=== PATIENT | female | born 1935 | race Caucasian/White ===

== ENCOUNTER 2018-11-16 18:10 | Emergency (ER) | payer MEDICARE ==
[~2018-11-16] VITALS: Ht 162.6 cm; Wt 61.2 kg
--- NOTE | 2018-11-16 19:20 | NUR ---
Report given to PATRICK Segundo
[2018-11-16] MEDS ORDERED: fentaNYL INJECTION 100 MCG/2 ML AMP IVP ONE ×2 (19:30→21:15)
[2018-11-16] MEDS ORDERED: NS IV 1000 ML 1,000 ML IV SCH ×2 (19:30→23:30)
[2018-11-16] MEDS ORDERED: ONDANSETRON 4 MG/2 ML (SDV) Z0FRAN IVP ONE ×2 (19:30→21:15)
--- NOTE | 2018-11-16 19:56 | ED Abdominal Pain ---
General Chief Complaint: Abdominal/GI Problems Stated Complaint: ABD PAIN, NAUSEA Nursing Triage Note: Pt to ED in wheelchair and accompanied by family. Pt c/o nausea, vomiting, R sided abdominal pain that began at 1500 today. Pt reports pain radiates to the back. Sepsis Screen: No Definite Risk Source of Information: Patient, Family (daughters) History of Present Illness Date Seen by Provider: Nov 16, 2018 Time Seen by Provider: 19:00 Initial Comments Patient is an 83-year-old female presenting with abdominal pain and nausea and vomiting. She states this came on this afternoon for her. She hasn't previously been having constipation that she was taking Metamucil for her. Then this afternoon she suddenly developed right-sided abdominal pain and had nausea and vomiting. This has persisted throughout the afternoon and evening. She came to the emergency department this evening with her family. She states that the pain does radiate into her back. She denies having similar symptoms in the past. She has had no diarrhea. She does report that the Metamucil has helped her have a bowel movement this morning. She denies having any pain with urination. She felt like she was having a fever at home but did not take her temperature this afternoon. She was having recurrent episodes of nausea and vomiting that she could not stop so that brought her to the ED. Allergies and Home Medications Allergies Uncoded Allergies: ERYTHROMYCIN (Allergy, Unknown, 11/16/18) Patient Home Medication List Home Medication List Reviewed: Yes Review of Systems Review of Systems Constitutional: fever (subjective) EENTM: No Symptoms Reported Respiratory: No Symptoms Reported Cardiovascular: No Symptoms Reported Gastrointestinal: Abdomen Distended, Abdominal Pain, Constipated (but had a bowel movement this morning), Nausea, Poor Appetite (chronic issue); Denies Rectal Bleeding; Vomiting Musculoskeletal: no symptoms reported Skin: no symptoms reported Psychiatric/Neurological: No Symptoms Reported Past Csdepuw-Hzyoig-Trnkmg Hx Past Med/Social Hx: Reviewed Nursing Past Med/Soc Hx Patient Social History Alcohol Use: Denies Use Recreational Drug Use: No 2nd Hand Smoke Exposure: No Recent Foreign Travel: No Contact w/Someone Who Travel: No Recent Infectious Disease Expo: No Recent Hopitalizations: No Physical Abuse: No Sexual Abuse: No Seasonal Allergies Seasonal Allergies: No Past Medical History Surgeries: Yes (colon) Abdominal (colon resection for colon cancer) Respiratory: No Cardiac: No Neurological: No Genitourinary: No Gastrointestinal: Yes (colon cancer) Endocrine: No HEENT: No Cancer: Yes Colon Did You Recieve Any Treatments: Yes What Type of Treatment Did You: Surgical Intervention Psychosocial: No Blood Disorders: No Adverse Reaction/Blood Tranf: No Physical Exam Vital Signs Vital Signs - First Documented 11/16/18 18:45 Temp 100.0 Pulse 75 Resp 15 B/P (MAP) 181/98 (125) Pulse Ox 94 O2 Delivery Room Air Capillary Refill : Less Than 3 Seconds Height/Weight/BMI Height: 5'4.00" Weight: 135lbs. oz. 61.632352vo; BMI Method:Stated General Appearance: moderate distress, thin HEENT: PERRL/EOMI, pharynx normal Neck: non-tender Respiratory: chest non-tender, lungs clear, normal breath sounds, no respiratory distress Cardiovascular: normal peripheral pulses, regular rate, rhythm Gastrointestinal: soft, no pulsatile mass, abnormal bowel sounds (hypoactive), distended, guarding, tenderness (right sided abdominal pain) Rectal: deferred Neurologic/Psychiatric: circulation worker II-XII nml as tested, alert, other (anxious and actively vomiting) Skin: warm/dry, pallor Progress/Results/Core Measures Results/Orders Lab Results Laboratory Tests Test 11/16/18 18:50 Range/Units White Blood Count 10.8 4.3-11.0 10^3/uL Red Blood Count 4.30 L 4.35-5.85 10^6/uL Hemoglobin 14.1 11.5-16.0 G/DL Hematocrit 42 35-52 % Mean Corpuscular Volume 97 80-99 FL Mean Corpuscular Hemoglobin 33 25-34 PG Mean Corpuscular Hemoglobin Concent 34 32-36 G/DL Red Cell Distribution Width 13.4 10.0-14.5 % Platelet Count 265 130-400 10^3/uL Mean Platelet Volume 10.5 H 7.4-10.4 FL Neutrophils (%) (Auto) 86 H 42-75 % Lymphocytes (%) (Auto) 9 L 12-44 % Monocytes (%) (Auto) 4 0-12 % Eosinophils (%) (Auto) 0 0-10 % Basophils (%) (Auto) 0 0-10 % Neutrophils # (Auto) 9.3 H 1.8-7.8 X 10^3 Lymphocytes # (Auto) 1.0 1.0-4.0 X 10^3 Monocytes # (Auto) 0.4 0.0-1.0 X 10^3 Eosinophils # (Auto) 0.0 0.0-0.3 10^3/uL Basophils # (Auto) 0.0 0.0-0.1 10^3/uL Neutrophils % (Manual) 83 % Lymphocytes % (Manual) 6 % Monocytes % (Manual) 5 % Band Neutrophils 5 % Atypical Lymphocytes 1 % Sodium Level 138 135-145 MMOL/L Potassium Level 4.1 3.6-5.0 MMOL/L Chloride Level 98 98-107 MMOL/L Carbon Dioxide Level 24 21-32 MMOL/L Anion Gap 16 H 5-14 MMOL/L Blood Urea Nitrogen 19 H 7-18 MG/DL Creatinine 1.05 0.60-1.30 MG/DL Estimat Glomerular Filtration Rate 50 BUN/Creatinine Ratio 18 Glucose Level 151 H 70-105 MG/DL Calcium Level 9.4 8.5-10.1 MG/DL Corrected Calcium 9.2 8.5-10.1 MG/DL Total Bilirubin 0.4 0.1-1.0 MG/DL Aspartate Amino Transf (AST/SGOT) 22 5-34 U/L Alanine Aminotransferase (ALT/SGPT) 9 0-55 U/L Alkaline Phosphatase 87 40-136 U/L Troponin T 15 H <=10 NG/L Total Protein 7.5 6.4-8.2 GM/DL Albumin 4.3 3.2-4.5 GM/DL Lipase 38 8-78 U/L My Orders Orders - JONELLE GOLD MD Comprehensive Metabolic Panel (11/16/18 18:56) Lipase (11/16/18 18:56) Ua Culture If Indicated (11/16/18 18:56) Cbc With Automated Diff (11/16/18 18:56) Ekg Tracing (11/16/18 18:56) Continuous Ekg Monitoring (11/16/18 18:56) Troponin T (11/16/18 18:56) Ondansetron Injection (Zofran Injectio (11/16/18 19:30) Ns Iv 1000 Ml (Sodium Chloride 0.9%) (11/16/18 19:30) Fentanyl Injection (Sublimaze Injection (11/16/18 19:30) Ct Abdomen/Pelvis W (11/16/18 19:54) Iohexol Injection (Omnipaque 350 Mg/Ml 1 (11/16/18 20:15) Received Contrast (Hold Metformin- Contr (11/16/18 20:15) Sodium Chloride Flush (Catheter Flush Sy (11/16/18 20:15) Ns (Ivpb) (Sodium Chloride 0.9% Ivpb Bag (11/16/18 20:15) Manual Differential (11/16/18 18:50) Fentanyl Injection (Sublimaze Injection (11/16/18 21:15) Ng Tube Insert & Assessment (11/16/18 21:10) Ng Tube To Low Wall Suction (11/16/18 21:10) Ondansetron Injection (Zofran Injectio (11/16/18 21:15) Chest 1 View Ap/Pa Only (11/16/18 22:12) Hydralazine Injection (Apresoline Inject (11/16/18 22:45) Metoclopramide Injection (Reglan Injecti (11/16/18 23:30) Ns Iv 1000 Ml (Sodium Chloride 0.9%) (11/16/18 23:30) Metoclopramide Injection (Reglan Injecti (11/16/18 23:31) Medications Given in ED Current Medications Medications Dose Ordered Sig/Kayode Route Start Time Stop Time Status Last Admin Dose Admin Fentanyl Citrate 25 mcg ONCE ONCE IVP 11/16/18 19:30 11/16/18 19:31 DC 11/16/18 19:28 25 MCG Fentanyl Citrate 25 mcg ONCE ONCE IVP 11/16/18 21:15 11/16/18 21:16 DC 11/16/18 21:25 25 MCG Hydralazine HCl 10 mg ONCE ONCE IV 11/16/18 22:45 11/16/18 22:47 DC 11/16/18 22:49 10 MG Iohexol 100 ml ONCE ONCE IV 11/16/18 20:15 11/16/18 20:19 DC 11/16/18 20:48 100 ML Metoclopramide HCl 5 mg ONCE ONCE IVP 11/16/18 23:30 11/17/18 00:31 DC 11/16/18 23:43 5 MG Metoclopramide HCl 10 mg STK-MED ONCE .ROUTE 11/16/18 23:31 11/17/18 00:31 DC 11/16/18 23:31 10 MG Ondansetron HCl 4 mg ONCE ONCE IVP 11/16/18 19:30 11/16/18 19:31 DC 11/16/18 19:27 4 MG Ondansetron HCl 4 mg ONCE ONCE IVP 11/16/18 21:15 11/16/18 21:16 DC 11/16/18 21:26 4 MG Sodium Chloride 10 ml NEEDED PRN IV 11/16/18 20:15 11/17/18 03:20 DC 11/16/18 20:49 10 ML Sodium Chloride 50 ml ONCE ONCE IV 11/16/18 20:15 11/16/18 20:19 DC 11/16/18 20:48 50 ML Vital Signs/I&O 11/16/18 11/17/18 18:45 02:39 Temp 100.0 99.7 Pulse 75 88 Resp 15 18 B/P (MAP) 181/98 (125) 147/74 (98) Pulse Ox 94 97 O2 Delivery Room Air Room Air 11/17/18 00:00 Intake Total 1000 ml Balance 1000 ml Blood Pressure Mean: 125 Progress Progress Note #1: Time: 19:00 Progress Note Will check labs and try giving IV zofran for nausea, Fentanyl for pain and IVF for hydration. Will plan on checking CT scan of abdomen/pelvis if her Cr is good enough to get with contrast, otherwise will obtain with non-contrast study. Her blood pressure is elevated but she is also distressed with active emesis so will wait to see if she is truly elevated once her nausea and vomiting has calmed down Progress Note #2: Progress Note On recheck her labs appear stable without elevation of her white blood cell count. Her chemistry is normal lipase and creatinine. We will obtain a CT scan of her abdomen and pelvis to evaluate for possible bowel obstruction or appendicitis or other pathology that could be causing her to have the nausea and vomiting and abdominal pain. Progress Note #3: Progress Note CT scan shows that she has small bowel obstruction the distal small bowel. No evidence of perforation. Updated the patient and family. With [facility] [place] on diversion due to the hospital being full the patient's family requested to go to [facility]. [address] Dr. Olaf Red accepted the patient in transfer to [facility] Her blood pressure remained elevated after the NG was placed so a single dose of Hydralazine 10 mg IV was given to the patient. This did help lower her blood pressure. She was also given 5 mg IV reglan to help with nausea and motility of her intestines. Progress Note #4: Time: 03:25 Progress Note EMS available now to transport pt to [facility]. Pt has remained stable during her stay in the ED. Her NG did require occasional suctioning and flushing to help it suction as it would occasionally stop and the pt would complain of nausea again. her bp remained improved after the single dose of hydralazine. she was getting some maintenance fluids of NS at 75 mls/hr. Initial ECG Impression Date: Nov 16, 2018 Initial ECG Impression Time: 21:03 Initial ECG Rate: 77 Initial ECG Rhythm: Normal Sinus Initial ECG Intervals [place] interval of 172 ms. QT interval of 398 ms with QTc interval of 450 ms. Left axis deviation. No acute ST elevation. No prior tracing immediately available for comparison Initial ECG Comparisson: No Previous ECG Available Diagnostic Imaging Diagonstic Imaging: Xray Plain Films/CT/US/NM/MRI: chest Comments Tip of the NG appears to be in the stomach, on my review of the 1 view film of the chest. Reviewed: Reviewed by Me Diagonstic Imaging: CT Plain Films/CT/US/NM/MRI: abdomen, pelvis Comments NAME: HUNTER HENDERSON [facility] REC#: [id number] PT STATUS: REG ER : 1935 PHYSICIAN: JONELLE GOLD MD ADMIT DATE: 11/16/18/ER FS Signed Date of Exam:11/16/18 CT ABDOMEN/PELVIS W PROCEDURE: CT abdomen and pelvis with contrast. TECHNIQUE: Multiple contiguous axial images were obtained through the abdomen and pelvis after administration of intravenous contrast. Auto Exposure Controls were utilized during the CT exam to meet ALARA standards for radiation dose reduction. INDICATION: Right-sided abdominal pain. History of colon CA. FINDINGS: The lung bases are clear. The liver appears normal. Gallbladder shows multiple faceted gallstones. Gallbladder wall is mildly thickened. Gallbladder is mildly distended. The bile ducts are not dilated. The pancreas appears normal. The spleen is normal. The adrenal glands and kidneys are normal. There is normal enhancement of the abdominal organs and vessels. There is rather marked dilatation of the small bowel loops throughout the mid and lower abdomen. The distal small bowel is not distended. Colon shows normal stool and gas pattern. No masses are seen. No adenopathy of pathologic size. There is a small umbilical hernia without evidence of incarcerated bowel. No free air or free fluid. No evidence of pneumatosis. IMPRESSION: 1. Distended loops of small bowel with air-fluid levels consistent with distal small bowel obstruction with a mid ileum, likely within the pelvis. 2. Distended gallbladder with multiple gallstones and mild thickening of the gallbladder wall. Dictated by: Dictated on workstation # [id number] Dict: 11/16/182103 Trans: 11/16/182121 [id number] Interpreted by: JESSICA SHIRLEY MD Electronically signed by: JESSICA SHIRLEY MD 11/16/182121 Reviewed: Reviewed by Me (and reviewed reading from radiology.) Departure Impression Primary Impression: Small bowel obstruction Additional Impression: Hypertension Qualified Codes: I10 - Essential (primary) hypertension Disposition: XFER SHT-TRM HOSP Condition: Stable Transfer Time Spoke to Accepting Phy: 21:49 Transfer Progress Notes D/W Dr. Olaf Red At [facility] at 2149 and he accepted the patient in transfer. Will look for a bed and make arrangements. I advised him that once the NG was placed if her BP did not improve I would then start to treat it but was holding off initially because of her small size I did not want to treat it if she was falsely elevated due to pain from the bowel obstruction and moving her arm. Transfer Time: 03:25 Transfer Facility: [facility] Method of Transfer: EMS Departure-Patient Inst. Referrals: ANDREY PANIAGUA MD (PCP) Primary Care Physician JONELLE GOLD MD Nov 16, 2018 19:56
[2018-11-16] MEDS ORDERED: CATHETER FLUSH 10 ML SYR IV PRN (20:15)
[2018-11-16] MEDS ORDERED: HOLD METFORMIN - RECEIVED CONTRAST 20 ML VIAL IV SCH (20:15)
[2018-11-16] MEDS ORDERED: NS 50 ML (IVPB) BAG IV ONE (20:15)
[2018-11-16] MEDS ORDERED: IOHEXOL 350 MG/ML 100 ML (OMNIPAQUE 350) VIAL IV ONE (20:15)
[2018-11-16 20:37] LABS: BILIRUBIN,TOTAL 0.4 MG/DL (0.1-1.0); CALCIUM 9.4 MG/DL (8.5-10.1); CREATININE SERUM 1.05 MG/DL (0.60-1.30); POTASSIUM 4.1 MMOL/L (3.6-5.0)
[2018-11-16 20:38] LABS: ALBUMIN 4.3 GM/DL (3.2-4.5); TOTAL PROTEIN 7.5 GM/DL (6.4-8.2)
[2018-11-16 20:39] LABS: BASOPHILS % (AUTO) 0 % (0-10); EOSINOPHILS % (AUTO) 0 % (0-10); HEMATOCRIT 42 % (35-52); HEMOGLOBIN 14.1 G/DL (11.5-16.0); LYMPHOCYTES % (AUTO) 9 % (12-44); MEAN CORPUSCULAR HEMOGLOBIN 33 PG (25-34); MEAN CORPUSCULAR HGB CONC 34 G/DL (32-36); MEAN CORPUSCULAR VOLUME 97 FL (80-99); MEAN PLATELET VOLUME 10.5 FL (7.4-10.4); MONOCYTES % (AUTO) 4 % (0-12); NEUTROPHILS % (AUTO) 86 % (42-75); PLATELET COUNT 265 10^3/uL (130-400); RED CELL DISTRIBUTION WIDTH 13.4 % (10.0-14.5); WHITE BLOOD COUNT 10.8 10^3/uL (4.3-11.0)
[2018-11-16 20:40] LABS: MONOCYTES # (AUTO) 0.4 X 10^3 (0.0-1.0); NEUTROPHILS # (AUTO) 9.3 X 10^3 (1.8-7.8)
[2018-11-16 20:41] LABS: ATYPICAL LYMPHOCYTES 1 %; BAND NEUTROPHILS 5 %; LYMPHOCYTES % (MANUAL) 6 %; MONOCYTES % (MANUAL) 5 %; NEUTROPHILS % (MANUAL) 83 %
--- NOTE | 2018-11-16 21:09 | Diagnostic Imaging Report ---
PROCEDURE: CT abdomen and pelvis with contrast. TECHNIQUE: Multiple contiguous axial images were obtained through the abdomen and pelvis after administration of intravenous contrast. Auto Exposure Controls were utilized during the CT exam to meet ALARA standards for radiation dose reduction. INDICATION: Right-sided abdominal pain. History of colon CA. FINDINGS: The lung bases are clear. The liver appears normal. Gallbladder shows multiple faceted gallstones. Gallbladder wall is mildly thickened. Gallbladder is mildly distended. The bile ducts are not dilated. The pancreas appears normal. The spleen is normal. The adrenal glands and kidneys are normal. There is normal enhancement of the abdominal organs and vessels. There is rather marked dilatation of the small bowel loops throughout the mid and lower abdomen. The distal small bowel is not distended. Colon shows normal stool and gas pattern. No masses are seen. No adenopathy of pathologic size. There is a small umbilical hernia without evidence of incarcerated bowel. No free air or free fluid. No evidence of pneumatosis. IMPRESSION: 1. Distended loops of small bowel with air-fluid levels consistent with distal small bowel obstruction with a mid ileum, likely within the pelvis. 2. Distended gallbladder with multiple gallstones and mild thickening of the gallbladder wall. Dictated by: Dictated on workstation # [id number]
[2018-11-16] MEDS ORDERED: hydrALAZINE (APESOLINE) 20 MG/ML VIAL IV ONE (22:45)
--- NOTE | 2018-11-16 22:46 | NUR ---
DOCTOR AWARE OF THE PT'S BP BEING 218/106 NEW ORDERS PLACED.
[2018-11-16] MEDS ORDERED: METOCLOPRAMIDE INJ 10 MG/2 ML (REGLAN) IVP ONE (23:30)
[2018-11-16] MEDS ORDERED: METOCLOPRAMIDE INJ 10 MG/2 ML (REGLAN) ONE (23:31)
--- NOTE | 2018-11-16 23:46 | NUR ---
FLUSHED NG TUBE AT THIS TIME.
[2018-11-17 02:39] VITALS: BP 147/74
--- NOTE | 2018-11-17 06:59 | Diagnostic Imaging Report ---
EXAMINATION: Single frontal view of the chest. INDICATION: Abdominal pain. Nausea and vomiting. NG tube placement. COMPARISON: None available. FINDINGS: An enteric tube is in place, with the distal tip overlying the upper to mid esophagus near the aortic arch. The lungs are clear and the pulmonary vasculature is normal. No pneumothorax or large pleural effusion. The cardiomediastinal silhouette is normal. There is mild tortuosity of thoracic aorta. No acute osseous abnormality identified. Contrast excretion from a prior CT abdomen and pelvis is demonstrated in both renal pelves. IMPRESSION: No acute chest disease. Distal tip of enteric tube overlies the upper to mid esophagus, at the level of the aortic arch. Dictated by: Dictated on workstation # [id number]
== END 2018-11-17 03:19 | disposition short-term general hospital (02) ==
LOC: ER FS 18:11
DX: K56.609 Unspecified intestinal obstruction, unspecified as to partial versus complete obstruction (principal); I10 Essential (primary) hypertension; Z88.1 Allergy status to other antibiotic agents; Z85.038 Personal history of other malignant neoplasm of large intestine
CPT/HCPCS: 36415; 71045; 74177; 80053; 83690; 84484; 85007; 85027

== ENCOUNTER 2020-09-29 15:11 | Emergency (ER) | payer MEDICARE ==
[~2020-09-29] VITALS: Ht 165.1 cm; Wt 59.0 kg
[2020-09-29] MEDS ORDERED: ONDANSETRON 4 MG/2 ML (SDV) Z0FRAN IVP STA (15:25)
[2020-09-29] MEDS ORDERED: fentaNYL INJECTION 100 MCG/2 ML AMP IVP STA (15:25)
--- NOTE | 2020-09-29 15:57 | NUR ---
THE PTS DAUGHTER WAS BROUGHT BACK TO THE ER TO HELP EASE THE PTS ANXIETY AND TO HELP CHOOSE A TRANSFER LOCATION. SHE STATED SHE HAD BEEN ADAMANT ON SCENE THAT THE PT GO TO [facility] BUT THE [facility] CREW STATED THEY COULD NOT TAKE HER THERE. LUCIANA FROM [facility] CALLED THIS RN REPORT AND STATED THERE WAS NO SHORTENING OR ROTATION TO THE LEFT LEG. THE PT WAS GIVEN 100 MCG OF FENTANYL AND 4 MG OF [facility]. THE CREW ARRIVED WITH THE PT WITH VERY OBVIOUS SHORTENING AND ROTATION NOTED TO THE LEFT LEG AND THEY STATED THE PT DEMANDED TO COME TO THE [place] ER.
--- NOTE | 2020-09-29 16:04 | Diagnostic Imaging Report ---
Indication: Hip fracture Portable chest 3:36 PM Heart size and pulmonary vascularity are normal. Lungs are clear. There are no effusions or pneumothoraces. IMPRESSION: Negative chest Dictated by: Dictated on workstation # [id number]
--- NOTE | 2020-09-29 16:09 | ED Fall/Injury ---
General Chief Complaint: Lower Extremity Stated Complaint: FALL Nursing Triage Note: Patient presents to the ED via EMS with c/o left hip pain. She states she was reaching up trying to grab something off the top of her refrigerator when she lost her balance landing on her left hip. Upon arrival there is obvious shortening and external rotation of the left hip. Source: patient, EMS History of Present Illness Date Seen by Provider: Sep 29, 2020 Time Seen by Provider: 15:11 Initial Comments 85 yo Female presents with left hip pain after a fall at home. She was trying to get something off of the top of the refrigerator when she lost her balance and fell on her left side. She had severe pain in her left hip and was unable to get back up. She denies losing consciousness but states that she did bump her head. She has shortening and external rotation of her left hip. She denies any numbness or decreased sensation in her arms or legs. She has no change in her vision. She can move all of her extremities. She denies any chest pain, cough, shortness of breath, abdominal pain, pain with urination, fever, chills. She states that she does have trouble controlling her urine but that that is a chronic issue. She has intermittent issues with her stool going from constipation to loose stools but this has been also chronic. She states she had a normal bowel movement yesterday. She denies taking any medications and does not take any blood thinners or aspirin. She used to follow-up with Dr. Paniagua but has not seen him for a few years. Occurred: just prior to arrival Severity: severe Injuries/Pain Location: lower extremity (left hip) Context: lost balance Loss of Consciousness: no loss of consciousness Modifying Factors: Improves With Immobilization; Worse With Jarring, Worse With Movement; Improves With Pain Medication Associated Symptoms (Fall): No Abdominal Pain, No Chest Pain, No Confusion, No Dizziness, No Headache, No Lightheadedness; Muscle Spasms; No Nausea/Vomiting, No Neck Pain, No Ringing in Ears, No Seizures, No Shortness of Air, No Slurred Speech; Trouble Walking (could not get up due to pain in left hip); No Vision Changes Allergies and Home Medications Allergies Uncoded Allergies: ERYTHROMYCIN (Allergy, Unknown, 11/16/18) Patient Home Medication List Home Medication List Reviewed: Yes Review of Systems Review of Systems Constitutional: No chills, No dizziness, No fever, No malaise Eyes: Denies Blurred Vision, Denies Photophobia, Denies Vision Changes Ears, Nose, Mouth, Throat: no symptoms reported Respiratory: No cough, No short of breath Cardiovascular: No chest pain, No edema Gastrointestinal: No abdominal pain; nausea (Since getting pain medication); No vomiting Genitourinary: No dysuria; frequency (Chronic issue) Musculoskeletal: see HPI; No neck pain Skin: no symptoms reported Psychiatric/Neurological: Denies Headache, Denies Numbness, Denies Paresthesia; Tremors (Chronic) Past Dwguudi-Huibkp-Thmxgb Hx Past Med/Social Hx: Reviewed Nursing Past Med/Soc Hx Patient Social History Alcohol Use: Denies Use Smoking Status: Never a Smoker 2nd Hand Smoke Exposure: No Recent Infectious Disease Expo: No Recent Hopitalizations: No Seasonal Allergies Seasonal Allergies: No Past Medical History Surgeries: Yes (colon resection) Abdominal, Bowel Surgery Respiratory: No Cardiac: No Neurological: No Genitourinary: No Gastrointestinal: Yes (colon cancer) Musculoskeletal: No Endocrine: No HEENT: No Cancer: Yes Colon Did You Recieve Any Treatments: Yes What Type of Treatment Did You: Surgical Intervention Psychosocial: No Integumentary: No Blood Disorders: No Adverse Reaction/Blood Tranf: No Physical Exam Vital Signs Vital Signs - First Documented 09/29/20 15:20 Temp 37.1 Pulse 64 Resp 18 B/P (MAP) 150/82 (104) Pulse Ox 98 O2 Delivery Room Air Capillary Refill : Less Than 3 Seconds Height, Weight, BMI Height: 5'4.00" Weight: 135lbs. oz. 61.204912ls; 21.00 BMI Method:Stated General Appearance: WD/WN, moderate distress (Due to pain in her left hip and upper thigh) HEENT: PERRL/EOMI, pharynx normal Neck: full range of motion, supple Cardiovascular: normal peripheral pulses, regular rate, rhythm Respiratory: chest non-tender, lungs clear, normal breath sounds, no respiratory distress, no accessory muscle use Gastrointestinal: normal bowel sounds, soft, no pulsatile mass Extremities: no calf tenderness, normal capillary refill, pelvis stable, other (Pain to the left hip increased with any movement and palpation. 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 nml as tested, no motor/sensory deficits, alert, oriented x 3 Skin: normal color, warm/dry Robert Coma Score Best Eye Response: (4) Open Spontaneously Best Verbal Response: (5) Oriented Best Motor Response: (6) Obeys Commands Robert Total: 15 Progress/Results/Core Measures Results/Orders Lab Results Laboratory Tests Test 09/29/20 16:20 09/29/20 16:26 09/29/20 17:27 Range/Units Urine Color YELLOW Urine Clarity CLEAR Urine pH 6.0 5-9 Urine Specific Robinson 1.020 1.016-1.022 Urine Protein NEGATIVE NEGATIVE Urine Glucose (UA) NEGATIVE NEGATIVE Urine Ketones 1+ H NEGATIVE Urine Nitrite NEGATIVE NEGATIVE Urine Bilirubin NEGATIVE NEGATIVE Urine Urobilinogen NORMAL < = 1.0 MG/DL Urine Leukocyte Esterase TRACE H NEGATIVE Urine RBC (Auto) NEGATIVE NEGATIVE Urine RBC NONE /HPF Urine WBC 2-5 /HPF Urine Squamous Epithelial Cells RARE /HPF Urine Crystals NONE /LPF Urine Bacteria FEW H /HPF Urine Casts NONE /LPF Urine Mucus MODERATE H /LPF Urine Culture Indicated YES White Blood Count 14.3 H 4.3-11.0 10^3/uL Red Blood Count 3.41 L 4.35-5.85 10^6/uL Hemoglobin 11.2 L 11.5-16.0 G/DL Hematocrit 34 L 35-52 % Mean Corpuscular Volume 101 H 80-99 FL Mean Corpuscular Hemoglobin 33 25-34 PG Mean Corpuscular Hemoglobin Concent 33 32-36 G/DL Red Cell Distribution Width 13.4 10.0-14.5 % Platelet Count 206 130-400 10^3/uL Mean Platelet Volume 10.2 7.4-10.4 FL Immature Granulocyte % (Auto) 0 % Neutrophils (%) (Auto) 90 H 42-75 % Lymphocytes (%) (Auto) 5 L 12-44 % Monocytes (%) (Auto) 4 0-12 % Eosinophils (%) (Auto) 0 0-10 % Basophils (%) (Auto) 0 0-10 % Neutrophils # (Auto) 12.9 H 1.8-7.8 X 10^3 Lymphocytes # (Auto) 0.7 L 1.0-4.0 X 10^3 Monocytes # (Auto) 0.6 0.0-1.0 X 10^3 Eosinophils # (Auto) 0.0 0.0-0.3 10^3/uL Basophils # (Auto) 0.0 0.0-0.1 10^3/uL Immature Granulocyte # (Auto) 0.1 0.0-0.1 10^3/uL Neutrophils % (Manual) 86 % Lymphocytes % (Manual) 7 % Monocytes % (Manual) 3 % Band Neutrophils 4 % Macrocytosis SLIGHT Sodium Level 140 135-145 MMOL/L Potassium Level 4.6 3.6-5.0 MMOL/L Chloride Level 103 98-107 MMOL/L Carbon Dioxide Level 24 21-32 MMOL/L Anion Gap 13 5-14 MMOL/L Blood Urea Nitrogen 20 H 7-18 MG/DL Creatinine 1.14 0.60-1.30 MG/DL Estimat Glomerular Filtration Rate 45 BUN/Creatinine Ratio 18 Glucose Level 166 H 70-105 MG/DL Calcium Level 9.0 8.5-10.1 MG/DL Corrected Calcium 9.1 8.5-10.1 MG/DL Total Bilirubin 0.4 0.1-1.0 MG/DL Aspartate Amino Transf (AST/SGOT) 19 5-34 U/L Alanine Aminotransferase (ALT/SGPT) 9 0-55 U/L Alkaline Phosphatase 82 40-136 U/L Troponin I < 0.30 <0.30 NG/ML Total Protein 6.6 6.4-8.2 GM/DL Albumin 3.9 3.2-4.5 GM/DL Prothrombin Time 12.9 12.2-14.7 SEC INR Comment 1.0 0.8-1.4 Activated Partial Thromboplast Time < 20 L 24-35 SEC My Orders Orders - JONELLE GOLD MD Pelvis With Left Hip 2-3 View (09/29/20 15:24) Cbc With Automated Diff (09/29/20 15:25) Chest 1 View Ap/Pa Only (09/29/20 15:25) Ekg Tracing (09/29/20 15:25) Comprehensive Metabolic Panel (09/29/20 15:25) Protime With Inr (09/29/20 15:25) Partial Thromboplastin Time (09/29/20 15:25) O2 (09/29/20 15:25) Monitor-Rhythm Ecg Trace Only (09/29/20 15:25) Ed Iv/Invasive Line Start (09/29/20 15:25) Troponin I Fs (09/29/20 15:25) Fentanyl Injection (Sublimaze Injection (09/29/20 15:25) Ondansetron Injection (Zofran Injectio (09/29/20 15:25) Ct Head/Cervical Spine Wo (09/29/20 15:36) Ekg Tracing (09/29/20 15:37) Hernadez Cath (09/29/20 15:56) Ua Culture If Indicated (09/29/20 15:56) Urine Culture (09/29/20 16:20) Manual Differential (09/29/20 16:26) Vital Signs/I&O 09/29/20 09/29/20 15:20 17:48 Temp 37.1 37.1 Pulse 64 72 Resp 18 20 B/P (MAP) 150/82 (104) 188/90 (104) Pulse Ox 98 100 O2 Delivery Room Air Blood Pressure Mean: 104 Progress Progress Note #1: Progress Note Obtain basic labs as well as x-rays of the pelvis with left hip, chest x-ray and CT of the head and cervical spine since she reported bumping her head when she fell. She denied any pain or loss of consciousness. Ordered additional fentanyl and Zofran for pain and nausea. Progress Note #2: Progress Note Pelvis and hip x-rays do demonstrate intertrochanteric comminuted fracture of the left hip with displacement and impaction. Pelvis appears stable without fracture. When discussed with patient and daughter about choice of facility for transfer since patient will definitely need orthopedic intervention and surgery they have requested [facility] as they have the family members that works with the [facility] system. They were advised that they would have to likely pay an additional fee for ambulance transport past facilities that were closer and had orthopedics and could provide the service that she needed. They did confer and discuss this but still decided they wanted to seek care at [facility] since she had been admitted there most recently and had more family members in the area for greater back up and assistance in care. 1604 call placed to [facility] Transfer center and discussed with Shwetha. 1618 Dr. Reese with transfer center called back and discussed pt and accepted her in transfer but will check with Orthopedics and hospitalist about what facility she can go to as well as wanting to get labs and tests since not everything is back yet. Progress Note #3: Progress Note 1655 Dr. Reese called back for additional details. He thought Hospitalist would be able to take pt at [facility] provided they did not want her on telemetry monitoring. Waiting to hear back, but had wanted to verify that the pt was not taking any blood thinners and not on any medicines or any extensive history of medical problems. 1730 Patient will be going to [facility]. Labs do show elevated WBC count likely from stress due to fracture. Chemistry with mild elevation of Cr and mild drop in GFR to go with some mild renal insufficiency. Negative cardiac enzymes. CXR clear and CT head and cervical spine show age related changes and arthritic changes but no fracture, bleeding or stroke. UA from catheter with mild elevation of Specific Robinson at 1.020 and trace LE, 2-5 WBC with few bacteria and mucus. Initial ECG Impression Date: Sep 29, 2020 Initial ECG Impression Time: 16:05 Initial ECG Rate: 63 Initial ECG Rhythm: Normal Sinus Initial ECG Comparisson: Unchanged Comment Normal sinus rhythm with a heart rate of 63 bpm. WV interval [address] elevation. QT interval 431 ms with a QTc interval 442 ms. Appears similar to prior tracings in the system. Diagnostic Imaging Diagonstic Imaging: Xray Plain Films/CT/US/NM/MRI: pelvis, hip Comments [facility]. [place], [place] NAME: HUNTER HENDERSON [facility] REC#: [id number] PT STATUS: REG ER : 1935 PHYSICIAN: JONELLE GOLD MD ADMIT DATE: 09/29/20/ER FS Signed Date of Exam:09/29/20 PELVIS WITH LEFT HIP 2-3 VIEW Indication: Left hip fracture AP view pelvis and 3 views of left hip are obtained There is a comminuted intertrochanteric fracture left hip with reduction of the femoral angle and avulsion of the greater and lesser trochanters. The pelvic ring and right hip appear to be grossly intact. IMPRESSION: Comminuted intertrochanteric fracture left hip Dictated by: Dictated on workstation # [id number] Dict: 09/29/20 1605 Trans: 09/29/20 1606 [id number] Interpreted by: YRIS IQBAL MD Electronically signed by: YRIS IQBAL MD 09/29/20 1606 Diagonstic Imaging: Xray Plain Films/CT/US/NM/MRI: chest Comments [facility] [place] [place] NAME: AGNES HENDERSONARERafael Blackburn [facility] REC#: [id number] PT STATUS: REG ER : 1935 PHYSICIAN: JONELLE GOLD MD ADMIT DATE: 09/29/20/ER FS Signed Date of Exam:09/29/20 CHEST 1 VIEW AP/PA ONLY Indication: Hip fracture Portable chest 3:36 PM Heart size and pulmonary vascularity are normal. Lungs are clear. There are no effusions or pneumothoraces. IMPRESSION: Negative chest Dictated by: Dictated on workstation # [id number] Dict: 09/29/20 1602 Trans: 09/29/20 1603 [id number] Interpreted by: YRIS IQBAL MD Electronically signed by: YRIS IQBAL MD 09/29/20 1603 Diagonstic Imaging: CT Plain Films/CT/US/NM/MRI: c-spine, head Comments [facility] [place] [place] NAME: HUNTER HENDERSON [facility] REC#: [id number] PT STATUS: REG ER : 1935 PHYSICIAN: JONELLE GOLD MD ADMIT DATE: 09/29/20/ER FS Signed Date of Exam:09/29/20 CT HEAD/CERVICAL SPINE WO CLINICAL INDICATION: Patient is status post fall from standing height. Patient hit head. EXAM: Axial Head CT without IV contrast with sagittal and coronal reformations. Axial CT scan of the cervical spine with sagittal and coronal reformations. Auto Exposure Controls were utilized during the CT exam to meet ALARA standards for radiation dose reduction. COMPARISON: None. FINDINGS: HEAD CT: There is no evidence of acute cerebral infarct, intracranial hemorrhage, or gross mass effect. There is diffuse brain parenchymal volume loss. There are diffuse patchy and confluent areas of low-attenuation white matter changes throughout both cerebral hemispheres. There is normal michael-white matter distinction. There is no significant midline shift or herniation. There is no evidence of hydrocephalus. The basal cisterns are unremarkable. The skull, extracranial soft tissue, and orbits are unremarkable. The paranasal sinuses are unremarkable. Temporal bones show no significant abnormality. CERVICAL SPINE CT: There is no acute cervical spine fracture. There is grade 1 anterolisthesis of C7 on T1 with no pars defect seen. There are cervical spine vertebral body spurs and facet arthropathy. There is severe right C4-C5 and C5-C6 neuroforaminal narrowing due to uncinate spurs. There is moderate to severe left C5-C6 neuroforaminal narrowing. There is no significant bony central canal narrowing. There is no significant neck soft tissue abnormality. The visualized upper lung borja are clear. IMPRESSION: 1: There is no definite CT evidence of interval acute cerebral infarction, intracranial hemorrhage, or mass seen. Given the diffuse low attenuation changes throughout the brain parenchyma which can obscure more subtle findings, if there is clinical concern for acute cerebral infarction, MRI of the brain would better evaluate. 2: There are severe, diffuse low attenuation changes seen throughout both cerebral hemispheres, likely representing chronic small vessel ischemic disease and leukoaraiosis. 3: There is no acute cervical spine fracture. 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 Dictated by: Dictated on workstation # [id number] Dict: 09/29/20 1615 Trans: 09/29/20 1721 [id number] Interpreted by: KULDIP FRENCH MD Electronically signed by: KULDIP FRENCH MD 09/29/20 1721 Departure Impression Primary Impression: Closed intertrochanteric fracture of left hip Qualified Codes: S72.142A - Displaced intertrochanteric fracture of left femur, initial encounter for closed fracture Additional Impression: Fall at home Qualified Codes: W19.XXXA - Unspecified fall, initial encounter; Y92.009 - Unspecified place in unspecified non-institutional (private) residence as the place of occurrence of the external cause Disposition: XF [facility] Condition: Stable Transfer Transfer Reason: Patient preference (requested [facility] by patient and f rexy) Time Spoke to Accepting Phy: 16:18 Transfer Progress Notes d/w Dr. Reese with [facility] transfer center. He accepted pt for transfer and is waiting on images and labs. Will d/w Ortho and hospitalist to determine where pt can go in system. [address] Reese and waiting to hear back from Hospitalist at [facility] to see if pt can go there. Pt will be accepted to [facility]. Awaiting transport. Transfer Facility: [facility] Method of Transfer: EMS Departure-Patient Inst. Referrals: ANDREY PANIAGUA MD (PCP/Family) Primary Care Physician JONELLE GOLD MD Sep 29, 2020 16:09
--- NOTE | 2020-09-29 16:27 | Diagnostic Imaging Report ---
CLINICAL INDICATION: Patient is status post fall from standing height. Patient hit head. EXAM: Axial Head CT without IV contrast with sagittal and coronal reformations. Axial CT scan of the cervical spine with sagittal and coronal reformations. Auto Exposure Controls were utilized during the CT exam to meet ALARA standards for radiation dose reduction. COMPARISON: None. FINDINGS: HEAD CT: There is no evidence of acute cerebral infarct, intracranial hemorrhage, or gross mass effect. There is diffuse brain parenchymal volume loss. There are diffuse patchy and confluent areas of low-attenuation white matter changes throughout both cerebral hemispheres. There is normal michael-white matter distinction. There is no significant midline shift or herniation. There is no evidence of hydrocephalus. The basal cisterns are unremarkable. The skull, extracranial soft tissue, and orbits are unremarkable. The paranasal sinuses are unremarkable. Temporal bones show no significant abnormality. CERVICAL SPINE CT: There is no acute cervical spine fracture. There is grade 1 anterolisthesis of C7 on T1 with no pars defect seen. There are cervical spine vertebral body spurs and facet arthropathy. There is severe right C4-C5 and C5-C6 neuroforaminal narrowing due to uncinate spurs. There is moderate to severe left C5-C6 neuroforaminal narrowing. There is no significant bony central canal narrowing. There is no significant neck soft tissue abnormality. The visualized upper lung borja are clear. IMPRESSION: 1: There is no definite CT evidence of interval acute cerebral infarction, intracranial hemorrhage, or mass seen. Given the diffuse low attenuation changes throughout the brain parenchyma which can obscure more subtle findings, if there is clinical concern for acute cerebral infarction, MRI of the brain would better evaluate. 2: There are severe, diffuse low attenuation changes seen throughout both cerebral hemispheres, likely representing chronic small vessel ischemic disease and leukoaraiosis. 3: There is no acute cervical spine fracture. 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 Dictated by: Dictated on workstation # [id number]
[2020-09-29 16:34] LABS: BACTERIA,URINE FEW /HPF; BILIRUBIN,URINE NEGATIVE (NEGATIVE); CLARITY,URINE CLEAR; COLOR,URINE YELLOW; GLUCOSE, URINE (UA) NEGATIVE (NEGATIVE); KETONES,URINE 1+ (NEGATIVE); LEUKOCYTE ESTERASE ,URINE TRACE (NEGATIVE); NITRITE,URINE NEGATIVE (NEGATIVE); PROTEIN,URINE NEGATIVE (NEGATIVE)
[2020-09-29 16:35] LABS: BASOPHILS % (AUTO) 0 % (0-10); EOSINOPHILS % (AUTO) 0 % (0-10); HEMATOCRIT 34 % (35-52); HEMOGLOBIN 11.2 G/DL (11.5-16.0); LYMPHOCYTES % (AUTO) 5 % (12-44); MEAN CORPUSCULAR HEMOGLOBIN 33 PG (25-34); MEAN CORPUSCULAR HGB CONC 33 G/DL (32-36); MEAN CORPUSCULAR VOLUME 101 FL (80-99); MEAN PLATELET VOLUME 10.2 FL (7.4-10.4); MONOCYTES % (AUTO) 4 % (0-12); NEUTROPHILS # (AUTO) 12.9 X 10^3 (1.8-7.8); NEUTROPHILS % (AUTO) 90 % (42-75); PLATELET COUNT 206 10^3/uL (130-400); WHITE BLOOD COUNT 14.3 10^3/uL (4.3-11.0)
[2020-09-29 16:35] LABS: SQUAMOUS EPITHELIAL CELL,UR RARE /HPF
[2020-09-29 16:36] LABS: LYMPHOCYTES # (AUTO) 0.7 X 10^3 (1.0-4.0); MONOCYTES # (AUTO) 0.6 X 10^3 (0.0-1.0)
[2020-09-29 17:02] LABS: ALBUMIN 3.9 GM/DL (3.2-4.5); BILIRUBIN,TOTAL 0.4 MG/DL (0.1-1.0); CREATININE SERUM 1.14 MG/DL (0.60-1.30); POTASSIUM 4.6 MMOL/L (3.6-5.0); TOTAL PROTEIN 6.6 GM/DL (6.4-8.2)
[2020-09-29 17:11] LABS: BAND NEUTROPHILS 4 %; LYMPHOCYTES % (MANUAL) 7 %; MONOCYTES % (MANUAL) 3 %; NEUTROPHILS % (MANUAL) 86 %
[2020-09-29 17:48] VITALS: BP 188/90
[2020-09-29 18:06] LABS: PARTIAL THROMBOPLASTIN TIME < 20 SEC (24-35); PROTHROMBIN TIME PATIENT 12.9 SEC (12.2-14.7)
== END 2020-09-29 18:21 | disposition short-term general hospital (02) ==
LOC: EDUNIT# 15:11 → ER FS 15:12
DX: S72.142A Displaced intertrochanteric fracture of left femur, initial encounter for closed fracture (principal); Z88.1 Allergy status to other antibiotic agents; Z85.038 Personal history of other malignant neoplasm of large intestine; W18.30XA Fall on same level, unspecified, initial encounter; Y92.009 Unspecified place in unspecified non-institutional (private) residence as the place of occurrence of the external cause
CPT/HCPCS: 36415; 51702; 70450; 71045; 72125; 73502; 80053; 81000; 84484; 85007; 85027; 85610; 85730; 87088; 93005

== ENCOUNTER → 2020-11-17 | Outpatient (CLI) | payer MEDICARE ==
[2020-11-17 17:00] LABS: BACTERIA,URINE NEGATIVE /HPF; BILIRUBIN,URINE NEGATIVE (NEGATIVE); CLARITY,URINE CLEAR; COLOR,URINE YELLOW; GLUCOSE, URINE (UA) NEGATIVE (NEGATIVE); KETONES,URINE 1+ (NEGATIVE); LEUKOCYTE ESTERASE ,URINE NEGATIVE (NEGATIVE); NITRITE,URINE NEGATIVE (NEGATIVE); PROTEIN,URINE NEGATIVE (NEGATIVE); RBC,URINE 0-2 /HPF
[2020-11-17 17:01] LABS: CALCIUM OXALATE CRYSTALS,UR RARE /LPF
== END ==
LOC: IHC 16:43
PROVIDERS: ATTEND Family Medicine
DX: N39.0 Urinary tract infection, site not specified (principal)
CPT/HCPCS: 81000

== ENCOUNTER → 2020-12-05 | Outpatient (CLI) | payer MEDICARE ==
[2020-12-05 17:53] LABS: BILIRUBIN,TOTAL 0.3 MG/DL (0.1-1.0); CALCIUM 8.9 MG/DL (8.5-10.1); POTASSIUM 4.3 MMOL/L (3.6-5.0)
[2020-12-05 17:54] LABS: ALBUMIN 3.7 GM/DL (3.2-4.5); BASOPHILS # (AUTO) 0.1 10^3/uL (0.0-0.1); BASOPHILS % (AUTO) 1 % (0-10); EOSINOPHILS # (AUTO) 0.1 10^3/uL (0.0-0.3); EOSINOPHILS % (AUTO) 1 % (0-10); HEMATOCRIT 37 % (35-52); HEMOGLOBIN 12.2 G/DL (11.5-16.0); LYMPHOCYTES # (AUTO) 1.3 X 10^3 (1.0-4.0); LYMPHOCYTES % (AUTO) 23 % (12-44); MEAN CORPUSCULAR HEMOGLOBIN 33 PG (25-34); MEAN CORPUSCULAR HGB CONC 33 G/DL (32-36); MEAN CORPUSCULAR VOLUME 100 FL (80-99); MEAN PLATELET VOLUME 10.6 FL (7.4-10.4); MONOCYTES # (AUTO) 0.5 X 10^3 (0.0-1.0); MONOCYTES % (AUTO) 9 % (0-12); NEUTROPHILS # (AUTO) 3.7 X 10^3 (1.8-7.8); NEUTROPHILS % (AUTO) 66 % (42-75); PLATELET COUNT 247 10^3/uL (130-400); TOTAL PROTEIN 6.2 GM/DL (6.4-8.2); WHITE BLOOD COUNT 5.6 10^3/uL (4.3-11.0)
[2020-12-05 22:10] LABS: FREE T4 (FREE THYROXINE) 1.03 NG/DL (0.70-1.48)
== END ==
LOC: IHC 17:24
PROVIDERS: ATTEND Family Medicine
DX: Z13.228 Encounter for screening for other metabolic disorders (principal); R94.6 Abnormal results of thyroid function studies; R68.89 Other general symptoms and signs
CPT/HCPCS: 80053; 84439; 84443; 85025

== ENCOUNTER → 2021-01-01 | Outpatient (CLI) | payer MEDICARE ==
[2021-01-01 16:36] LABS: BASOPHILS # (AUTO) 0.1 10^3/uL (0.0-0.1); BASOPHILS % (AUTO) 1 % (0-10); EOSINOPHILS % (AUTO) 1 % (0-10); HEMATOCRIT 40 % (35-52); HEMOGLOBIN 13.1 G/DL (11.5-16.0); LYMPHOCYTES # (AUTO) 1.3 X 10^3 (1.0-4.0); LYMPHOCYTES % (AUTO) 23 % (12-44); MEAN CORPUSCULAR HEMOGLOBIN 33 PG (25-34); MEAN CORPUSCULAR HGB CONC 33 G/DL (32-36); MEAN CORPUSCULAR VOLUME 99 FL (80-99); MONOCYTES # (AUTO) 0.4 X 10^3 (0.0-1.0); MONOCYTES % (AUTO) 8 % (0-12); NEUTROPHILS # (AUTO) 3.8 X 10^3 (1.8-7.8); NEUTROPHILS % (AUTO) 67 % (42-75); PLATELET COUNT 219 10^3/uL (130-400); WHITE BLOOD COUNT 5.6 10^3/uL (4.3-11.0)
== END ==
LOC: IHC 16:05
PROVIDERS: ATTEND Family Medicine
DX: E86.0 Dehydration (principal)
CPT/HCPCS: 85025

== ENCOUNTER → 2021-08-13 | Outpatient (CLI) | payer MEDICARE ==
[2021-08-13 12:53] LABS: CLARITY,URINE TURBID; COLOR,URINE YELLOW; GLUCOSE, URINE (UA) NEGATIVE (NEGATIVE); KETONES,URINE NEGATIVE (NEGATIVE); LEUKOCYTE ESTERASE ,URINE TRACE (NEGATIVE); NITRITE,URINE NEGATIVE (NEGATIVE); PH,URINE 5.5 (5-9); PROTEIN,URINE TRACE (NEGATIVE)
[2021-08-13 13:15] LABS: BACTERIA,URINE FEW /HPF; BILIRUBIN,URINE 1+ (NEGATIVE); CALCIUM OXALATE CRYSTALS,UR FEW /LPF
== END ==
LOC: IHC 12:38
PROVIDERS: ATTEND Family Medicine
DX: N39.0 Urinary tract infection, site not specified (principal)
CPT/HCPCS: 81000; 87077; 87088